=== PATIENT | female | born 1995 | race Caucasian/White ===

== ENCOUNTER 2024-07-15 11:46 | Emergency (ER) | payer OTHER, SELFPAY ==
[2024-07-15 11:54] VITALS: BP 146/114; PULSE 98; TEMP 36.7; O2SAT 98; BMI 33.7
--- NOTE | 2024-07-15 11:59 | ED_ITS ---
HPI HPI - General Adult General Chief complaint: Extremity Injury, Upper Stated complaint: upper extremity swelling Time Seen by Provider: 07/15/24 11:54 Source: patient Mode of arrival: walk-in Limitations: no limitations History of Present Illness HPI narrative: 29-year-old female presents for pain in her left wrist. She broke it 5 and a half weeks ago and at that time was told she needed a cast for 8 weeks. Yesterday she saw the orthopedist and the cast was removed and a Velcro splint was placed. Since then she has had pain and swelling. She called the orthopedist office who suggested she see her family doctor. She called her family doctor and they told her to come to the emergency department. No new injury. Related Data Home Medications ?Medication ?Instructions ?Recorded ?Confirmed metoprolol tartrate 25 mg tablet mg 07/15/24 Previous Rx's ?Medication ?Instructions ?Recorded acetaminophen 300 mg-codeine 30 mg 1 tab PO Q6H PRN pa in 5 days #20 07/15/24 tablet tabs Allergies Allergy/AdvReac Type Severity Reaction Status Date / Time rofecoxib (From Vioxx) Allergy Mild Hives Verified 07/15/24 11:53 sulfamethoxazole (From Allergy Mild Hives Verified 07/15/24 11:53 Bactrim) trimethoprim (From Bactrim) Allergy Mild Hives Verified 07/15/24 11:53 Opioid HPI Opioid Management Most Recent Opioid Data: Last Pain Scale 8 Today, 13:08 Last MAY Pain Assessment Today, 13:08 Review of Systems ROS Narrative A ten point review of systems is negative except as noted above. PFSH PFSH Social History Little interest or pleasure in doing things: not at all Feeling down, depressed, or hopeless: not at all Exam Narrative Exam Narrative: Nurses note and vital signs reviewed and patient is not hypoxic. General: The patient appears well and in no apparent distress. Patient is resting comfortably on cart. Skin: Warm, dry, no pallor noted. There is no rash noted. Head: Normocephalic, atraumatic Eye: Normal conjunctiva, no drainage Ears, Nose, Mouth, and Throat: oral mucosa is moist. Nares patent. Cardiovascular: Regular Rate and Rhythm Respiratory: Patient is in no distress, no accessory muscle use Back: non-tender GI: Soft and nontender Musculoskeletal: The left wrist is examined. The skin is intact. There is some old bruising present on the volar surface. There is some swelling in the wrist region as well. Fingers have full range of motion. Neurological: A&O, normal speech Psychiatric: Cooperative Constitutional Vital Signs, click to edit/add: Last Vital Signs Temp 98.1 F 07/15/24 11:54 Pulse 98 H 07/15/24 11:54 Resp 18 07/15/24 11:54 BP 138/76 07/15/24 12:00 Pulse Ox 98 07/15/24 11:54 O2 Del Method Room Air 07/15/24 11:54 Course Vital Signs Vital signs: Vital Signs Temperature 98.1 F 07/15/24 11:54 Pulse Rate 98 H 07/15/24 11:54 Respiratory Rate 18 07/15/24 11:54 Blood Pressure 146/114 H 07/15/24 11:54 Pulse Oximetry 98 07/15/24 11:54 Oxygen Delivery Method Room Air 07/15/24 11:54 Temperature 98.1 F 07/15/24 11:54 Pulse Rate 98 H 07/15/24 11:54 Respiratory Rate 18 07/15/24 11:54 Blood Pressure 138/76 07/15/24 12:00 Pulse Oximetry 98 07/15/24 11:54 Oxygen Delivery Method Room Air 07/15/24 11:54 Medical Decision Making MDM Narrative Medical decision making narrative: X-ray shows healing fractures and ultrasound shows no DVT. She is discharged home and was given a prescription for Tylenol 3. Treatment diagnosis and follow-up were discussed with the patient. Differential Diagnosis Differential Diagnosis: Left wrist pain Imaging Data Wrist x-ray, venous Doppler: Radiologist's impression: Left wrist x-ray: Transverse fracture across the base of the ulnar styloid process with early osseous bridging Ultrasound left upper extremity: No sonographic evidence of DVT in the left upper extremity Discharge Plan Discharge Chief Complaint: Extremity Injury, Upper Clinical Impression: Left wrist pain Patient Disposition: Home, Self-Care Time of Disposition Decision: 13:36 Condition: Good Mode of Transportation: Private Vehicle Prescriptions / Home Meds: New acetaminophen-codeine 300-30 mg tablet 1 tab PO Q6H PRN (Reason: pain) 5 Days Qty: 20 0RF No Action metoprolol tartrate 25 mg tablet Print Language: Serbian Instructions: Wrist Injury (ED) Referrals: Physician,Non-Staff, MD [Primary Care Provider] - 1 week
[2024-07-15 12:00] VITALS: BP 138/76
--- NOTE | 2024-07-15 12:04 | PC.NURSE ---
pt c/o left hand pain and swelling after cast removal, PMS intact distal to injury site
[2024-07-15] MEDS: ACETAMINOPHEN 325 MG TABLET 650 MG PO (13:08)
== END 2024-07-15 13:49 | disposition home or self-care (01) ==
PROVIDERS: Emergency Provider Emergency Medicine
DX: M25.532 Pain in left wrist (principal); S52.612D Displaced fracture of left ulna styloid process, subsequent encounter for closed fracture with routine healing
CPT/HCPCS: 73110; 93971; 99284

== ENCOUNTER 2024-09-11 11:14 | Emergency (ER) | payer OTHER, SELFPAY ==
[2024-09-11 11:25] VITALS: BP 111/86; PULSE 87; TEMP 37.2; O2SAT 98; BMI 32.8
[2024-09-11] MEDS: TRAMADOL HCL 50 MG TABLET PO (12:06)
--- NOTE | 2024-09-11 14:23 | ED.BACK1 ---
HPI HPI - Back Pain/Injury General Chief Complaint: Back Pain/Injury Stated Complaint: LOWER BACK PAIN Time Seen by Provider: 09/11/24 11:40 Source: patient Mode of arrival: walk-in Limitations: no limitations History of Present Illness HPI Narrative: The patient 29 years old female with history of degenerative disc disease according to her history coming to the ER with a lower back pain that is radiating to both legs that is not an acute complaint, patient has been dealing with this at least for a few years and she denies any trauma or fall Patient denies any numbness tingling down her legs or any incontinence of urine or stool Related Data Home Medications ?Medication ?Instructions ?Recorded ?Confirmed metoprolol tartrate 25 mg tablet 50 mg 07/15/24 Previous Rx's ?Medication ?Instructions ?Recorded ketorolac 10 mg tablet 10 mg PO Q8H PRN pain 3 days #10 09/11/24 tabs orphenadrine citrate 100 mg 100 mg PO BID PRN muscle spasm #20 09/11/24 tablet,extended release tabs Allergies Allergy/AdvReac Type Severity Reaction Status Date / Time rofecoxib (From Vioxx) Allergy Mild Hives Verified 09/11/24 11:21 sulfamethoxazole (From Allergy Mild Hives Verified 09/11/24 11:21 Bactrim) trimethoprim (From Bactrim) Allergy Mild Hives Verified 09/11/24 11:21 gabapentin Allergy Hives Verified 09/11/24 11:25 latex Allergy itch Verified 09/11/24 11:25 levofloxacin (From Levaquin) Allergy Vomiting Verified 09/11/24 11:25 NSAIDS (Non-Steroidal Allergy Vomiting Verified 09/11/24 11:25 Anti-Inflamma prednisone Allergy Hives Verified 09/11/24 11:25 Opioid HPI Opioid Management Most Recent Opioid Data: Last Pain Scale 10 Today, 12:06 Last MAR Pain Assessment Today, 12:06 Review of Systems ROS Status of ROS 10 or more systems reviewed and unremarkable except as noted in history and below PFSH PFSH Social History Little interest or pleasure in doing things: not at all Feeling down, depressed, or hopeless: not at all Exam Narrative Exam Narrative: Nurses notes and vital signs reviewed and patient is not hypoxic. General: Well-appearing and in no apparent distress. Skin: Warm, dry, no pallor noted. No rash. Head: Normocephalic, atraumatic. Neck: Supple, non-tender. Eye: Pupils are equal, round and EOMI. No scleral icterus. Ears, Nose, Mouth, and Throat: TM are clear, no nasal mucosal hypertrophy. Oral mucosa is moist, no posterior oropharynx erythema, uvula is mid-line Cardiovascular: Regular Rate and Rhythm without murmur, gallop or rub. Respiratory: No accessory muscle use or respiratory distress. Lungs are clear to auscultation, no wheezing, rales or rhonchi Chest Wall: no tenderness Back: No midline thoracic ,there intervertebral line tenderness at the lumbar level with mild paraspinal muscle tenderness Musculoskeletal: normal ROM, no calf or popliteal tenderness, no lower extremity edema/swelling GI: Abdomen is soft, non-distended. Normal bowel sounds. No masses appreciated. No tenderness to palpation. No rebound, guarding, or rigidity noted. Neurological: A&O x4. No cranial nerve dysfunction observed. No truncal ataxia. Moves all extremities. Sensation intact. Psychiatric: Cooperative and interactive. Normal mood and affect. Constitutional Vital Signs, click to edit/add: Last Vital Signs Temp 98.9 F 09/11/24 11:25 Pulse 87 09/11/24 11:25 Resp 18 09/11/24 11:25 BP 111/86 09/11/24 11:25 Pulse Ox 98 09/11/24 11:25 O2 Del Method Room Air 09/11/24 11:25 Course Vital Signs Vital signs: Vital Signs Temperature 98.9 F 09/11/24 11:25 Pulse Rate 87 09/11/24 11:25 Respiratory Rate 18 09/11/24 11:25 Blood Pressure 111/86 09/11/24 11:25 Pulse Oximetry 98 09/11/24 11:25 Oxygen Delivery Method Room Air 09/11/24 11:25 Temperature 98.9 F 09/11/24 11:25 Pulse Rate 87 09/11/24 11:25 Respiratory Rate 18 09/11/24 11:25 Blood Pressure 111/86 09/11/24 11:25 Pulse Oximetry 98 09/11/24 11:25 Oxygen Delivery Method Room Air 09/11/24 11:25 MDM - Back Pain/Injury MDM Narrative Medical decision making narrative: Patient examination did not show any acute finding Patient does have allergy to NSAIDs but she takes naproxen and she did take Toradol before with no complication Patient provided Toradol in the ER in addition to Norflex and also provided with 1 tablet of tramadol The patient mentioned that tramadol usually helps her pain Patient right now I did explain to her that tramadol is not indicated specially with her not using any NSAIDs and her age and risk factors The patient is to follow up with primary care physician in next 2-3 days or to return to the emergency department should any of the signs or symptoms worsen or new symptoms develop. The patient agrees with the following Diagnosis and Treatment plan and the patient will be discharged home. Discharge Plan Discharge Chief Complaint: Back Pain/Injury Clinical Impression: Lumbar radiculopathy Patient Disposition: Home, Self-Care Time of Disposition Decision: 11:57 Condition: Good Prescriptions / Home Meds: New orphenadrine citrate 100 mg tablet extended release 100 mg PO BID PRN (Reason: muscle spasm) Qty: 20 0RF ketorolac 10 mg tablet 10 mg PO Q8H PRN (Reason: pain) 3 Days Qty: 10 0RF Discontinued tizanidine 4 mg tablet No Action metoprolol tartrate 25 mg tablet 50 mg Print Language: Indonesian Instructions: Back Pain (ED) Referrals: KATELYNN KIM PA [Primary Care Provider] - 1 week Discharge Date/Time: 09/11/24 12:09
== END 2024-09-11 12:09 | disposition home or self-care (01) ==
PROVIDERS: Emergency Provider Emergency Medicine; PCP Physician Assistant
DX: M54.16 Radiculopathy, lumbar region (principal); M54.50 Low back pain, unspecified
CPT/HCPCS: 99283